=== PATIENT | female | born 1945 | race Caucasian/White ===

== ENCOUNTER 2020-08-16 17:03 | Emergency (ER) | payer MEDICARE ==
[2020-08-16] MEDS ORDERED: NORCO 5-325 TA1 EACH PO (19:39)
== END 2020-08-16 19:55 | disposition home or self-care (01) ==
LOC: FER 17:03
DX: M54.6 Pain in thoracic spine (principal); M54.5 Low back pain; R07.81 Pleurodynia; I10 Essential (primary) hypertension; Z87.19 Personal history of other diseases of the digestive system; W19.XXXA Unspecified fall, initial encounter; Y92.009 Unspecified place in unspecified non-institutional (private) residence as the place of occurrence of the external cause
CPT/HCPCS: 72128; 72220